=== PATIENT | male | born 1940 | race Caucasian/White ===

== ENCOUNTER → 2021-02-24 09:40 | Outpatient (CLI) | payer MEDICARE, OTHER, SELFPAY ==
--- NOTE | 2021-02-24 09:46 | CDU_ITS ---
Reason For Study: Bilateral Carotid Stenosis Rt. Velocities/BP Lt. Velocities/BP Prox CCA 99/14 cm/sec. Prox CCA 111/10 cm/sec. Mid CCA 82/16 cm/sec. Mid CCA 93/17 cm/sec. Dist CCA 53/10 cm/sec. Dist CCA 100/17 cm/sec. Prox ICA 70/12 cm/sec. Prox ICA 81/13 cm/sec. Mid ICA 77/15 cm/sec. Mid ICA 52/13 cm/sec. Dist ICA 86/18 cm/sec. Dist ICA 78/19 cm/sec. Rt. ICA/CCA = 1.1. Lt. ICA/CCA = 0.9. Prox ECA 78/10 cm/sec. Prox ECA 82/9 cm/sec. Rt. Vert. 62/13 cm/sec. Lt. Vert. 69/25 cm/sec. Right Extracranial There is heterogeneous, smooth atherosclerotic plaque noted in the right common carotid artery. There is heterogeneous, irregular atherosclerotic plaque noted in the right internal carotid artery. There is heterogeneous, irregular atherosclerotic plaque noted in the right external carotid artery. Antegrade flow is noted in the right vertebral artery. Left Extracranial There is heterogeneous, irregular atherosclerotic plaque noted in the left common carotid artery. There is heterogeneous, irregular atherosclerotic plaque noted in the left internal carotid artery. There is heterogeneous, smooth atherosclerotic plaque noted in the left external carotid artery. Antegrade flow is noted in the left vertebral artery. VL/Carotid Duplex Ultrasound Interpretation Summary Mild (<50%) stenosis right extracranial internal carotid. Mild (<50%) stenosis left extracranial internal carotid. Flow within the vertebral arteries is antegrade bilaterally. Ordering Physician: Lili Can Referring Physician: Lili Can Performed By: Meri Dao, MARIA ESTHER, RVT
--- NOTE | 2021-02-24 09:46 | ECHOD_ITS ---
Reason For Study: RBBB Procedure This was a 2D Doppler, Color Flow transthoracic echocardiogram. Technically difficult parasternals. The study was technically difficult. Exam performed in department. Left Ventricle Normal LV size. Left ventricular systolic function is normal. The estimated ejection fraction is 55 %. There is evidence of diastolic dysfunction. No regional wall motion abnormalities noted. Right Ventricle Normal RV size. Normal systolic function. Atria The left atrium is mildly enlarged. Normal right atrium. No doppler evidence for ASD. Mitral Valve There is no mitral annular calcification. Normal mitral valve. Mild (1+) mitral valve insufficiency. Tricuspid Valve Normal tricuspid valve. Mild tricuspid valve insufficiency. Right ventricular systolic pressure estimated to be 35 mmHg. Aortic Valve Trisinus/trileaflet aortic valve. Mild focal aortic valve thickening. Mild focal aortic valve calcification. Pulmonic Valve The pulmonic valve is not well visualized. Great Vessels Normal sized aortic root. Pericardium/Pleural No pericardial effusion. MMode/2D Measurements & Calculations LVIDd: 5.4 cm IVSd: 1.1 cm Ao root diam: 3.7 cm LVIDs: 3.9 cm LVPWd: 1.1 cm FS: 27.9 % LAV(MOD-bp): 86.1 ml LA A4 area: 24.2 cm2 LA dimension(2D): 4.3 cm LAV(MOD-bp) Indexed: 37.0 ml/m2 LAV(MOD-sp2): 86.3 ml LAV(MOD-sp4): 74.4 ml RA A4 area: 21.5 cm2 Time Measurements MV dec time: 0.13 sec Doppler Measurements & Calculations MV E max darek: 47.6 cm/sec Lat Peak E' Darek: 9.2 cm/sec Med Peak E' Darek: 9.2 cm/sec MV A max darek: 74.4 cm/sec E/E' lat: 5.2 E/E' med: 5.2 MV E/A: 0.64 Ao V2 max: 129.5 cm/sec AI max darek: 428.0 cm/sec LV V1 max: 88.5 cm/sec Ao max P.7 mmHg AI max P.3 mmHg LV V1 max P.1 mmHg AI dec slope: 174.1 cm/sec2 AI P1/2t: 719.8 msec PA V2 max: 95.2 cm/sec TR max darek: 280.7 cm/sec TR max P.5 mmHg ECHO/Echo Complete Interpretation Summary The study was technically difficult. Left ventricular systolic function is normal. The estimated ejection fraction is 55 %. The left atrium is mildly enlarged. Mild (1+) mitral valve insufficiency. Mild tricuspid valve insufficiency. Mild focal aortic valve thickening. Mild focal aortic valve calcification. Right ventricular systolic pressure estimated to be 35 mmHg. There is evidence of diastolic dysfunction. Ordering Physician: Lili Can Referring Physician: Lili Can Performed By: Nevaeh Amaya, MARIA ESTHER, RVT
== END ==
PROVIDERS: PCP Internal Medicine; Referring Provider Internal Medicine; Visit Provider Internal Medicine
DX: I65.23 Occlusion and stenosis of bilateral carotid arteries (principal); I45.10 Unspecified right bundle-branch block; I08.3 Combined rheumatic disorders of mitral, aortic and tricuspid valves
CPT/HCPCS: 93306; 93880

== ENCOUNTER 2022-03-09 10:10 | Emergency (ER) | payer MEDICARE, OTHER, SELFPAY ==
[2022-03-09 10:11] VITALS: BP 119/55; PULSE 64; RESP 18; TEMP 36.4; O2SAT 94; BMI 26.9
--- NOTE | 2022-03-09 10:19 | EKG12_ITS ---
Test Reason : WEAKNESS Blood Pressure : / mmHG Vent. Rate : 062 BPM Atrial Rate : 062 BPM P-R Int : 184 ms QRS Dur : 094 ms QT Int : 450 ms P-R-T Axes : 083 037 042 degrees QTc Int : 456 ms Sinus rhythm with Premature supraventricular complexes Otherwise normal ECG Confirmed by KISHORE JACKSON, ZACHARIAH ([id number]), editor in chief newspaper JOSH DOLL ([id number]) on 03/12/2022 1:32:46 PM Referred By: SNEHA Confirmed By:ZACHARIAH NOVAK MD
--- NOTE | 2022-03-09 10:20 | EX.ED.DYSGE1 ---
HPI History of Present Illness Chief Complaint: Weakness Informant: patient and EMS Onset/Context/Timing Onset: Today Current Severity: Mild Narrative Narrative: Patient presents secondary to generalized weakness. He states that he was outside working in the heat yesterday and believes he may have overdone it. Today he felt very weak and was sweaty. He states he felt better after EMS started giving him IV fluid. He denies chest pain or abdominal pain. He states his been eating and drinking well. He reports mild cough that he believes is secondary to seasonal allergies. No fever or chills. [facility] Medical History COPD (chronic obstructive pulmonary disease) High cholesterol HTN (hypertension) Home Medications allopurinol 100 mg PO BID 05/04/17 [History Last Taken Unknown] labetalol 100 mg PO DINNER 05/04/17 [History Last Taken Unknown] labetalol 200 mg PO BREAKFAST 05/04/17 [History Last Taken Unknown] Allergy/AdvReac Type Severity Reaction Status Date / Time No Known Allergies Allergy Verified 03/09/22 10:11 Social History Smoking Status: Former smoker ROS ROS ED Constitutional Constitutional ED: Reports sweats; Denies chills or fever(s) Eyes Eyes: Denies change in vision ENT ENT ED: Denies sore throat Cardiovascular Cardiovascular: Denies chest pain or palpitations Respiratory/Chest Respiratory/Chest: Reports cough; Denies dyspnea Gastrointestinal Gastrointestinal: Denies abdominal pain, nausea or vomiting Genitourinary Genitourinary ED: Denies dysuria Musculoskeletal Musculoskeletal: Denies back pain or neck pain Integumentary Denies rash Neurologic Neurologic: Reports weakness; Denies headache(s) Allergic/Immunologic Allergic/Immunologic ED: Denies urticaria EXAM Physical Exam Const Vital Signs: 03/09/22 10:11 03/09/22 10:13 03/09/22 12:52 Temperature 97.6 F L Temperature Source Temporal Pulse Rate 64 73 Respiratory Rate 18 16 Respiratory Effort Normal Non-Labored Respiratory Pattern Normal Blood Pressure 119/55 L 147/57 H Blood Pressure Mean 76 87 Pulse Ox 94 94 Oxygen Delivery Method Room Air Room Air 03/09/22 14:04 Temperature Temperature Source Pulse Rate Respiratory Rate Respiratory Effort Respiratory Pattern Blood Pressure Blood Pressure Mean Pulse Ox 100 Oxygen Delivery Method Room Air Positive well nourished and well developed General Appearance ED: well developed HEENT Reports moist mucous membranes Eyes PERRL and EOMs intact bilaterally Neck supple Chest Wall inspection of chest normal and palpation of chest normal Resp normal respiratory effort and clear to auscultation bilaterally Cardio regular rate and regular rhythm GI normal to inspection, nondistended, normoactive bowel sounds and non-tender Palpation: soft Extremity normal to inspection Neuro oriented x3 and no sensory deficits noted Sensorium / Orientation: alert Motor Exam: strength 5/5 throughout Psych mental status grossly normal Skin no rashes or lesions noted MDM MDM MDM Narrative Medical decision making narrative: Patient given IV fluids. Lab work, EKG, chest x-ray obtained. Lab Data Attestation: I reviewed the patient's lab results. Labs: Laboratory Results - last 24 hr 03/09/22 03/09/22 03/09/22 10:18 10:18 12:04 WBC 11.8 H RBC 4.34 L Hgb 14.1 Hct 42.3 MCV 97.5 H MCH 32.5 H MCHC 33.3 RDW Std Deviation 52.5 H RDW Coeff of Lisa 14.6 Plt Count 195 MPV 12.5 H Immature Gran % (Auto) 0.900 Neut % (Auto) 78.0 H Lymph % (Auto) 4.7 L [place] % (Auto) 12.5 H Eos % (Auto) 3.1 Baso % (Auto) 0.8 Absolute Neuts (auto) 9.2 H Absolute Lymphs (auto) 0.56 L Nucleated RBC % 0 Sodium 140 Potassium 4.7 Chloride 108 H Carbon Dioxide 27.0 Anion Gap 5 BUN 19 H Creatinine 1.52 H Estim Creat Clear Calc 45.21 Est GFR (MDRD) Af Amer 57 L Est GFR (MDRD) Non-Af 47 L BUN/Creatinine Ratio 12.5 Glucose 136 H Calcium 8.9 Troponin I High Sens 8 7 Urine Color Urine Clarity Urine pH Ur Specific [place] Urine Protein Urine Glucose (UA) Urine Ketones Urine Occult Blood Urine Nitrite Urine Bilirubin Urine Urobilinogen Ur Leukocyte Esterase Urine RBC Urine WBC Ur Squamous Epith Cells Urine Bacteria Hyaline Casts Urine Mucus 03/09/22 14:05 WBC RBC Hgb Hct MCV MCH MCHC RDW Std Deviation RDW Coeff of Lisa Plt Count MPV Immature Gran % (Auto) Neut % (Auto) Lymph % (Auto) [place] % (Auto) Eos % (Auto) Baso % (Auto) Absolute Neuts (auto) Absolute Lymphs (auto) Nucleated RBC % Sodium Potassium Chloride Carbon Dioxide Anion Gap BUN Creatinine Estim Creat Clear Calc Est GFR (MDRD) Af Amer Est GFR (MDRD) Non-Af BUN/Creatinine Ratio Glucose Calcium Troponin I High Sens Urine Color Yellow Urine Clarity Sl. Cloudy Urine pH 5.0 Ur Specific [place] 1.020 Urine Protein 15 H Urine Glucose (UA) Normal Urine Ketones 5 H Urine Occult Blood Negative Urine Nitrite Negative Urine Bilirubin 1 H Urine Urobilinogen 4 H Ur Leukocyte Esterase 25 H Urine RBC 0 SEEN Urine WBC 0-5 SEEN Ur Squamous Epith Cells 0 SEEN Urine Bacteria 0 SEEN Hyaline Casts 0-5 SEEN Urine Mucus 0 SEEN Radiography Chest X-Ray - ED: 1 View, Read by ED Physician and Chronic Changes Diagnostic Testing: Clinical Impression(s) from Imaging Studies Chest X-Ray 03/09/22 11:05 IMPRESSION: Increased markings at the lung bases worse on the left side. Early infiltrates should be ruled out. Electronically Signed: Jose Huggins MD at 11:22 EDT , EKG Initial EKG: Attestation: I personally reviewed and interpreted this EKG as follows: Interpretation: Sinus Rhythm (Sinus at 62 with PACs. No acute ischemia.) Treatment and Re-Evaluation Narrative: Lab work reveals mild elevation of white count of 11.8. Hemoglobin stable. Chemistry studies reveal a BUN of 19 and a creatinine of 1.52. This is elevated from prior labs, however that was 5 years ago. Chest x-ray per my interpretation reveals chronic changes. No focal infiltrate. Radiologist interpretation reviewed. Repeat troponin is negative. Patient feels well here. After 2 and half liters of IV fluid patient has probably been able to give us a urine sample. He will be discharged home with family. Discharge Plan Triage Chief Complaint: Weakness ED Provider: Joyce Laws Dx/Rx/DC Orders Clinical Impression: Dehydration, Weakness Instructions: ED Dehydration (Adult) Prescriptions: No Action allopurinol 100 MG tablet 100 mg PO BID RF: 0 labetalol 100 MG tablet 100 mg PO DINNER RF: 0 labetalol 100 MG tablet 200 mg PO BREAKFAST RF: 0 Primary Care Provider: Lili Can Referrals: Lili Can DO [Primary Care Provider] - 3-5 Days if not improving Disposition Disposition: Home, Self Care
[2022-03-09 11:04] LABS: Anion Gap 5 (5-15); BUN 19 mg/dL (7-18); BUN/Creat Ratio 12.5 RATIO (10-20); Calcium,Total 8.9 mg/dL (8.5-10.1); Chloride 108 mmol/L (98-107); Creatinine, Serum 1.52 mg/dL (0.70-1.30); EST Glomerular Filtration Rate 47 mL/min (>60); Est Glom Filt Rate - Afr Amer 57 mL/min (>60); Estimated Creatinine Clearance 45.21 ml/min; Glucose 136 mg/dL (74-106); Potassium 4.7 mmol/L (3.5-5.1); Sodium Level 140 mmol/L (136-145); Troponin-I HS 8 pg/mL (3.0-78.0)
--- NOTE | 2022-03-09 11:05 | RAD_ITS ---
STUDY: X-RAY CHEST REASON FOR EXAM: Male, 81 years old. Weakness and nonproductive cough. Diaphoresis. TECHNIQUE: Single AP portable view of the chest. COMPARISON: Comparison is made with prior study of 05/04/2017. FINDINGS: EKG electrodes are seen. Increased markings at the lung bases slightly worse on the left lung base. Early bibasilar infiltrates should be ruled out. Follow-up is recommended. Hyperinflation. There is no demonstrated pleural abnormality. Normal size heart. Normal mediastinum and jony. Normal visualized pulmonary arteries. Normal visualized aortic arch and descending thoracic aorta. There are diffuse degenerative changes of the visualized thoracic spine. Normal visualized ribs, clavicles, and shoulders. There is no demonstrated abnormality of the visualized soft tissue structures of the upper abdomen. RAD/Chest 1 View (Portable) IMPRESSION: Increased markings at the lung bases worse on the left side. Early infiltrates should be ruled out. Electronically Signed: Jose Huggins MD at 11:22 EDT ,
[2022-03-09 11:19] LABS: Absolute Lymphocyte Count 0.56 X10^3/uL (0.83-4.51); Absolute Neutrophil Count 9.2 X10^3/uL (2.0-7.7); Basophil# 0.09 X10^3/uL; Basophil% 0.8 % (0-1); Eosinophil# 0.37 X10^3/uL; Eosinophils% 3.1 % (0-5); Hematocrit 42.3 % (40-54); Hemoglobin 14.1 g/dL (13.0-16.5); Lymphocyte # 0.56 X10^3/ul (0.83-4.51); Lymphocyte % 4.7 % (19-41); Mean Corp Hgb Conc 33.3 g/dL (32-36); Mean Corpuscular Hgb 32.5 pg (27.0-32.0); Mean Corpuscular Volume 97.5 fL (80-94); Mean Platelet Vol. 12.5 fl (6.2-12.0); Monocyte# 1.47 X10^3/uL; Monocyte% 12.5 % (0-10); NRBC Flagged by Analyzer 0 % (0-5); POSITIVE DIFFERENTIAL YES; Platelet Count 195 K/mm3 (150-450); RBC Distribution Width CV 14.6 % (11.6-14.6); RBC Distribution Width SD 52.5 fl (35.1-43.9); Red Blood Count 4.34 M/mm3 (4.6-6.2); White Blood Count 11.8 K/mm3 (4.4-11.0)
[2022-03-09 11:20] LABS: Differential Indicated SCAN CRITERIA MET
[2022-03-09 12:32] LABS: Troponin-I HS 7 pg/mL (3.0-78.0)
[2022-03-09] MEDS: 0.9% Normal Saline 1,000 ML 150 ML IV (12:33)
[2022-03-09 12:52] VITALS: BP 147/57; PULSE 73; RESP 16; O2SAT 94
--- NOTE | 2022-03-09 13:11 | ED.RN ---
PROVIDER AWARE PT HAS NOT PROVIDED A UA, NO NEW ORDERS AT THIS TIME.
[2022-03-09 14:04] VITALS: O2SAT 100
[2022-03-09 14:19] LABS: Bacteria 0 SEEN /hpf (None Seen); Mucous, Urine 0 SEEN /hpf (<or=2+); Red Blood Cells-Urine 0 SEEN /hpf (0-5); Squamous Epithelial Cells - UA 0 SEEN /hpf (0-5)
[2022-03-09 14:23] LABS: Color, Urine Yellow (Yellow); Glucose, Dipstick Normal (Normal); Ketone-Dipstick 5 mg/dl (Negative); Leukocyte Esterase-Dipstick 25 /ul (Negative); Nitrite-Dipstick Negative (Negative); Occult Blood-Urine Negative /ul (Negative); Protein-Dipstick 15 mg/dl (Negative); Urine Bilirubin Dipstick 1 mg/dL (Negative); Urine Clarity Sl. Cloudy (Clear); Urine Urobilinogen 4 mg/dl (Normal)
[2022-03-09] MEDS: 0.9% Normal Saline 1,000 ML 999 ML IV (14:24)
[2022-03-09 14:29] LABS: Hyaline Cast 0-5 SEEN /lpf (0-5); White Blood Cells 0-5 SEEN /hpf (0-5)
[2022-03-09 14:40] VITALS: BP 129/83; PULSE 73; RESP 16; O2SAT 94
== END 2022-03-09 14:53 | disposition home or self-care (01) ==
PROVIDERS: Emergency Provider Emergency Medicine; PCP Internal Medicine; Visit Provider Emergency Medicine
DX: E86.0 Dehydration (principal); J44.9 Chronic obstructive pulmonary disease, unspecified; Z87.891 Personal history of nicotine dependence; E78.00 Pure hypercholesterolemia, unspecified; I10 Essential (primary) hypertension; R53.1 Weakness
CPT/HCPCS: 36415; 71045; 80048; 81001; 84484; 85025; 93005; 99285; J7030; A4216

== ENCOUNTER → 2022-07-13 | Outpatient (CLI) | payer MEDICARE, OTHER, SELFPAY ==
--- NOTE | 2022-07-13 10:37 | CDU_ITS ---
Reason For Study: Occlusion and stenosis Rt. Velocities/BP Lt. Velocities/BP Prox CCA 64.5/10.7 cm/sec. Prox CCA 100.3/11.3 cm/sec. Mid CCA 55.1/7.8 cm/sec. Mid CCA 76.2/11.3 cm/sec. Dist CCA 46.6/7.8 cm/sec. Dist CCA 71.8/10.2 cm/sec. Prox ICA 51.3/12.6 cm/sec. Prox ICA 46.5/11.3 cm/sec. Mid ICA 64.5/18.2 cm/sec. Mid ICA 66.3/17.9 cm/sec. Dist ICA 89.4/22.3 cm/sec. Dist ICA 76.2/14.6 cm/sec. Rt. ICA/CCA = 0.85. Lt. ICA/CCA = 1.00. Prox ECA 56/4.1 cm/sec. Prox ECA 69.6/5.8 cm/sec. Rt. Vert. 61.9/12.4 cm/sec. Lt. Vert. 59.7/14.6 cm/sec. Right Extracranial There is homogeneous, smooth atherosclerotic plaque noted in the right common carotid artery. There is heterogeneous, irregular atherosclerotic plaque noted in the right internal carotid artery. There is heterogeneous, irregular atherosclerotic plaque noted in the right external carotid artery. Antegrade flow is noted in the right vertebral artery. Left Extracranial There is homogeneous, smooth atherosclerotic plaque noted in the left common carotid artery. There is heterogeneous, irregular atherosclerotic plaque noted in the left internal carotid artery. There is homogeneous, smooth atherosclerotic plaque noted in the left external carotid artery. Antegrade flow is noted in the left vertebral artery. Procedure Carotid Duplex [id number]. This is a Carotid Duplex examination using B-mode, color flow and specral Doppler. Exam performed in department. VL/Carotid Duplex Ultrasound Interpretation Summary Mild (<50%) stenosis right extracranial internal carotid. Mild (<50%) stenosis left extracranial internal carotid. Flow within the vertebral arteries is antegrade bilaterally. Ordering Physician: Lili Can Referring Physician: Lili Can Performed By: Carla Otero RVT
== END | disposition home or self-care (01) ==
LOC: CVS 10:36
PROVIDERS: PCP Internal Medicine; Referring Provider Internal Medicine; Visit Provider Internal Medicine
DX: I65.23 Occlusion and stenosis of bilateral carotid arteries (principal)
CPT/HCPCS: 93880

== ENCOUNTER → 2023-12-09 | Outpatient (CLI) | payer MEDICARE, OTHER, SELFPAY | END | disposition home or self-care (01) | LOC: LAB 12:09 | PROVIDERS: PCP Internal Medicine; Referring Provider Nurse Practitioner; Visit Provider Nurse Practitioner | DX: R97.20 Elevated prostate specific antigen [PSA] (principal) | CPT/HCPCS: 36415; 84153 ==

== ENCOUNTER → 2023-12-16 | Outpatient (CLI) | payer MEDICARE, OTHER, SELFPAY ==
[2023-12-18 12:09] LABS: PSA, Free 4.73 ng/mL; PSA, Free % 22.6 % (.)
== END | disposition home or self-care (01) ==
LOC: LAB 14:15
PROVIDERS: PCP Internal Medicine; Referring Provider Urology; Visit Provider Urology
DX: R97.20 Elevated prostate specific antigen [PSA] (principal)
CPT/HCPCS: 36415; 84153; 84154

== ENCOUNTER → 2024-07-13 09:00 | Outpatient (REF) | payer SELFPAY | LOC: CVS 09:00 | PROVIDERS: PCP Internal Medicine; Referring Provider Internal Medicine | DX: Z00.00 Encounter for general adult medical examination without abnormal findings (principal) ==

== ENCOUNTER 2025-02-04 19:01 | Emergency (ER) | payer OTHER, MEDICARE, SELFPAY ==
[2025-02-04 19:02] VITALS: BP 147/83; PULSE 78; RESP 20; TEMP 36.4; O2SAT 96; BMI 24.1
--- NOTE | 2025-02-04 20:26 | ED.VIS.FALL ---
HPI HPI - Fall History of Present Illness Chief Complaint: Fall Informant: patient and spouse/S.O. Narrative Narrative: Presents here with spouse mechanical fall 5:30 PM. Walking up 2 steps on the porch she fell backwards onto his back. Hit the concrete ground. He bumped his head. Denies headache neck pain. Pain to the lower back. No pain down the legs. No chest pains. He ambulated here into the apartment. Does not walk with any assistance. Takes baby aspirin. PFSH PFSH Medical History Emphysema lung COPD (chronic obstructive pulmonary disease) High cholesterol HTN (hypertension) Home Medications ?Medication ?Instructions ?Recorded ?Last Taken ?Type labetalol 100 mg tablet 100 mg PO DINNER 05/04/17 Unknown History labetalol 100 mg tablet 200 mg PO BREAKFAST 05/04/17 Unknown History allopurinol 100 mg tablet 100 mg PO ONCE 09/04/24 Unknown History aspirin 81 mg chewable tablet 81 mg PO QDAY 09/04/24 Unknown History hydrochlorothiazide 25 mg tablet 12.5 mg PO QAM 09/04/24 Unknown History Allergy/AdvReac Type Severity Reaction Status Date / Time No Known Allergies Allergy Verified 02/04/25 19:02 Family History Other Asthma CVA (cerebral vascular accident) Myocardial infarction Social History Smoking Status: Former smoker Tobacco: How many years used: 25 ROS ROS ED Constitutional Constitutional ED: Denies chills, fever(s) or sweats Cardiovascular Cardiovascular: Denies chest pain Respiratory/Chest Respiratory/Chest: Denies cough Gastrointestinal Gastrointestinal: Denies abdominal pain, diarrhea, nausea or vomiting Musculoskeletal Musculoskeletal: Reports back pain; Denies extremity pain or neck pain Integumentary Denies rash or wounds Neurologic Neurologic: Denies headache(s), paresthesias or weakness EXAM Physical Exam Const Vital Signs: 02/04/25 19:02 02/04/25 19:14 02/04/25 20:56 Temperature 97.5 F L Temperature Source Temporal Pulse Rate 78 77 Respiratory Rate 20 H 18 Respiratory Effort Normal Respiratory Depth Normal Respiratory Pattern Normal Blood Pressure 147/83 H 143/79 H Blood Pressure Mean 104 100 Pulse Ox 96 92 Oxygen Delivery Method Room Air Room Air Room Air 02/04/25 21:42 Temperature 97.5 F L Temperature Source Pulse Rate 78 Respiratory Rate 18 Respiratory Effort Respiratory Depth Respiratory Pattern Blood Pressure 124/62 H Blood Pressure Mean 82 Pulse Ox 95 Oxygen Delivery Method Positive well nourished and well developed Constitutional Narrative: Hard of hearing GCS 15. General Appearance ED: well developed and NAD HEENT Reports moist mucous membranes normocephalic and atraumatic Eyes General Eye ED: Yes normal appearance of both eyes Neck full ROM Neck Narrative: No midline tenderness or step-offs. Chest Wall inspection of chest normal and palpation of chest normal Chest: Negative for tenderness Resp normal respiratory effort and normal air movement Effort and Inspection: symmetric chest movement; Negative for respiratory distress Cardio regular rate, regular rhythm and no murmurs Peripheral Pulses: pulses 2+ throughout GI normal to inspection, nondistended, normoactive bowel sounds and non-tender Palpation: Negative for guarding or rebound tenderness present Back/Spine Back/Spine Narrative: No thoracic tenderness there is midline lower lumbar tenderness without any step-offs. No ecchymosis of the back. Extremity normal to inspection Extremity Narrative: Negative logroll of the lower extremities. General Extremety ED: Negative for edema or tenderness General Extremity: Negative for edema Neuro oriented x3, CN's II-XII intact bilaterally and no sensory deficits noted Sensorium / Orientation: awake and alert Skin no rashes or lesions noted and no wounds MDM MDM MDM Narrative Medical decision making narrative: Interventions / MDM: Differential diagnosis: Vertebral fracture, fall, closed head injury Diagnosis considered but do not suspect:intracranial hemorrhage however CT negative. My EKG interpretation: N/A Imaging independently reviewed and interpreted by myself: CT brain: No acute process. CT lumbar spine nondisplaced L4 fracture superior endplate. no compression fracture noted. External documents reviewed: N/A Test considered but not ordered:N/A ED course: Mechanical fall low back pain with head injury. Will check CT lumbar and CT head. He declines any pain medicines currently. Shortly after return for CT he agreed with Tylenol which was ordered. CT brain negative CT lumbar spine nondisplaced fracture L4 superior endplate posteriorly. No compression fracture. Patient has been ambulating no radicular symptoms. Injury to the second column. Showed imaging to patient and spouse. Discussed using Tylenol as needed he is referred to spine for outpatient evaluation. Re-evaluation: stable Disposition discussed with patient/family/significant other: Patient and spouse Case discussed with consulting clinician: N/A This note was generated with [employer] dictation software. It may contain incorrect words, spelling, and punctuation that were not noted in checking the note before signing. Radiography Diagnostic Testing: Clinical Impression(s) from Imaging Studies Brain CT 02/04/25 20:30 IMPRESSION: No acute intracranial abnormality; no acute infarct, intracranial hemorrhage or extra-axial collection. Reading Location: [facility] Lumbar Spine CT 02/04/25 20:30 IMPRESSION: Acute L4 superior endplate wedge compression deformity without significant loss of disc height. Degenerative changes, most prominent at L4-L5 and L5-S1. Reading Location: [facility] Discharge Plan Triage Chief Complaint: Fall ED Provider: Jerald Marcos Dx/Rx/DC Orders Clinical Impression: Closed lumbar vertebral fracture, Fall, CHI (closed head injury) Instructions: ED Fracture, Vertebral Compression Prescriptions: No Action hydrochlorothiazide 25 mg tablet 12.5 mg PO QAM aspirin 81 mg tablet,chewable 81 mg PO QDAY labetalol 100 MG tablet 100 mg PO DINNER labetalol 100 MG tablet 200 mg PO BREAKFAST Patient Comments: TAKE TWO TABLETS BY MOUTH EVERY MORNING AND ONE TABLET EVERY EVENING allopurinol 100 mg tablet 100 mg PO ONCE Patient Comments: Primary Care Provider: Lili Can Referrals: Naif Alex MD [Med Staff - Active Staff] - 1 Week Lili Can DO [Primary Care Provider] - Activity Restrictions/Additional Instructions: CT brain negative. CT lumbar nondisplaced L4 fracture posterior vertebral body. No compression noted. Use Tylenol 1 g every 6 hours as needed. Follow-up with Dr. Cox for outpatient evaluation. Print Language: Surinamese Disposition Disposition: Home, Self Care Discharge Date/Time: 02/04/25 21:46
--- NOTE | 2025-02-04 20:30 | CT_ITS ---
PROCEDURE: SPINE LUMBAR WITHOUT CONTRAST 02/04/2025 REASON FOR EXAM: INJURY TECHNIQUE: Lumbar spine CT without contrast. Coronal and Sagittal reconstruction series were provided. One or more dose reduction techniques were used (e.g., Automated exposure control, adjustment of the mA and/or kV according to patient size, use of iterative reconstruction technique COMPARISON: None. FINDINGS: Vertebrae: Nondisplaced fracture through the superior endplate of L4 vertebral body (series 604, image 44). The lucency traverses the superior endplate and terminates at the level of the posterior inferior endplate. There is minimal loss of disc height. Remainder of the vertebral body heights and disc spaces are otherwise within normal limits. Alignment: Lumbar lordosis is maintained. Grade 1 anterolisthesis of L4 on L5. Diffuse osteopenia. Multilevel degenerative changes, most prominent at L4-L5 and L5-S1 with up to moderate canal stenosis and neural foraminal narrowing. Sacrum: No acute fracture of the sacrum. Paraspinal musculature demonstrates mild fatty atrophy. CT/Spine Lumbar without Contrast IMPRESSION: Acute L4 superior endplate wedge compression deformity without significant loss of disc height. Degenerative changes, most prominent at L4-L5 and L5-S1. Reading Location: [facility]
--- NOTE | 2025-02-04 20:30 | CT_ITS ---
PROCEDURE: BRAIN/HEAD WITHOUT CONTRAST 02/04/2025 REASON FOR EXAM: INJURY TECHNIQUE: Head CT without intravenous contrast. Coronal and Sagittal reconstruction series were provided. One or more dose reduction techniques were used (e.g., Automated exposure control, adjustment of the mA and/or kV according to patient size, use of iterative reconstruction technique. FINDINGS: No acute intracranial hemorrhage, mass, mass effect, midline shift or pathologic extra-axial fluid collection. Mild parenchymal atrophy with commensurate increase in CSF containing spaces. Patchy white matter hypodensities, patient demographics favor chronic microvascular ischemic changes. Paranasal sinuses and mastoid air cells are clear. The calvarium is grossly intact. CT/Brain/Head without Contrast IMPRESSION: No acute intracranial abnormality; no acute infarct, intracranial hemorrhage or extra-axial collection. Reading Location: [facility]
[2025-02-04] MEDS: Acetaminophen 500 MG Tablet 1000 MG PO (20:48)
[2025-02-04 20:56] VITALS: BP 143/79; PULSE 77; RESP 18; O2SAT 92
[2025-02-04 21:42] VITALS: BP 124/62; PULSE 78; RESP 18; TEMP 36.4; O2SAT 95
== END 2025-02-04 21:46 | disposition home or self-care (01) ==
PROVIDERS: Emergency Provider Emergency Medicine; PCP Internal Medicine; Visit Provider Emergency Medicine
DX: S32.009A Unspecified fracture of unspecified lumbar vertebra, initial encounter for closed fracture (principal); J44.9 Chronic obstructive pulmonary disease, unspecified; S09.90XA Unspecified injury of head, initial encounter; W10.9XXA Fall (on) (from) unspecified stairs and steps, initial encounter; E78.00 Pure hypercholesterolemia, unspecified; I10 Essential (primary) hypertension; Z79.82 Long term (current) use of aspirin; Z87.891 Personal history of nicotine dependence
CPT/HCPCS: 70450; 72131; 99282

== ENCOUNTER → 2025-07-20 | Outpatient (CLI) | payer MEDICARE, OTHER, SELFPAY | END | disposition home or self-care (01) | PROVIDERS: PCP Internal Medicine; Referring Provider Internal Medicine; Visit Provider Internal Medicine | DX: J43.9 Emphysema, unspecified (principal) | CPT/HCPCS: 94060; 94726; 94729 ==